=== PATIENT | male | born 1945 | race Caucasian/White ===

== ENCOUNTER → 2016-05-20 | Outpatient (CLI) | payer MEDICARE | DX: I10 Essential (primary) hypertension (principal) | CPT/HCPCS: 93306 ==

== ENCOUNTER → 2016-08-07 | Outpatient (CLI) | payer MEDICARE | LOC: US 13:00 | DX: R55 Syncope and collapse (principal) | CPT/HCPCS: 93880 ==

== ENCOUNTER 2020-10-12 21:25 | Emergency (ER) | payer MEDICARE ==
[2020-10-13 00:05] LABS: RED BLOOD COUNT 4.88 M/UL (4.20-5.50); WHITE BLOOD COUNT 14.8 K/UL (4.5-11.0)
[2020-10-13 00:21] LABS: BUN/CREATININE RATIO 33 (0-10)
== END 2020-10-13 00:50 | disposition home or self-care (01) ==
LOC: ER1 21:25
PROVIDERS: Physician Assistant Medical
DX: R07.9 Chest pain, unspecified (principal); R53.1 Weakness; I10 Essential (primary) hypertension; E11.9 Type 2 diabetes mellitus without complications; Z90.49 Acquired absence of other specified parts of digestive tract; Z88.8 Allergy status to other drugs, medicaments and biological substances; Z20.822 Contact with and (suspected) exposure to COVID-19
CPT/HCPCS: 71045; 80053; 82550; 82553; 83605; 83874; 84484; 85025; 87040; 93005; 99285; U0002

== ENCOUNTER 2021-10-24 07:00 | Observation (INO) | payer MEDICARE ==
[~2021-10-24] VITALS: Ht 188 cm; Wt 93.0 kg
[2021-10-24 07:44] LABS: HEMOGLOBIN 14.9 gm/dl (14.0-17.5); RED BLOOD COUNT 4.96 M/UL (4.20-5.50); WHITE BLOOD COUNT 7.6 K/UL (4.5-11.0)
[2021-10-24 08:07] LABS: BUN/CREATININE RATIO 25 (0-10)
[2021-10-24] MEDS ORDERED: KLONOPIN0.5 MG PO (13:15)
[2021-10-24] MEDS ORDERED: LOSARTAN-HCTZ1 EAC1 PO (13:16)
[2021-10-24] MEDS ORDERED: FINASTERIDE5 MG PO (13:17)
[2021-10-24] MEDS ORDERED: CLONIDINE HCL0.2 MG PO (13:17)
[2021-10-24] MEDS ORDERED: ZOLPIDEM TARTRA10 MG PO (13:18)
[2021-10-24] MEDS ORDERED: LISINOPRIL20 MG PO (13:18)
[2021-10-24] MEDS ORDERED: ACETAMINOPHEN-1 EAC1 PO (13:19)
[2021-10-24] MEDS ORDERED: LEVOTHYROXINE50 MCG PO (13:19)
[2021-10-24] MEDS ORDERED: XARELTO20 MG PO (13:20)
[2021-10-24] MEDS ORDERED: CARVEDILOL25 MG PO (13:21)
[2021-10-24] MEDS ORDERED: LEVEMIR100 UNIT/1 SQ (13:22)
[2021-10-24] MEDS ORDERED: CRESTOR10 MG PO (13:22)
[2021-10-24] MEDS ORDERED: AMLODIPINE BESY10 MG PO (13:23)
[2021-10-24] MEDS ORDERED: SERTRALINE HCL50 MG PO (13:23)
[2021-10-25 06:51] LABS: HEMOGLOBIN 16.6 gm/dl (14.0-17.5)
[2021-10-25 06:52] LABS: RED BLOOD COUNT 5.5 M/UL (4.20-5.50)
[2021-10-25 07:06] LABS: BUN/CREATININE RATIO 25 (0-10)
--- NOTE | 2021-10-25 07:36 | NUR ---
PATIENT REQUEST TO LEAVE AMA. HE STATES THAT HE HAS NOT SEEN THE DOCTOR SINCE HE HAS BEEN HERE AND HE WANTS TO LEAVE. WE ARE NOT DOING ANYTHING FOR HIM. PATIENT IS ALERT. DR MCDANIEL NOTIFIED. [employer] NOTIFIED.
== END 2021-10-25 08:35 | disposition left against medical advice (07) ==
LOC: ER1 07:00 → CDU 08:52 → MED SURG 4 13:58
PROVIDERS: Emergency Medicine; Physician Assistant; ADMIT Internal Medicine
DX: I16.0 Hypertensive urgency (principal); R07.89 Other chest pain; I48.20 Chronic atrial fibrillation, unspecified; E11.9 Type 2 diabetes mellitus without complications; I25.10 Atherosclerotic heart disease of native coronary artery without angina pectoris; E03.9 Hypothyroidism, unspecified; E78.5 Hyperlipidemia, unspecified; Z79.01 Long term (current) use of anticoagulants; Z95.5 Presence of coronary angioplasty implant and graft; Z86.73 Personal history of transient ischemic attack (TIA), and cerebral infarction without residual deficits
CPT/HCPCS: 0240U; 36415; 71045; 80048; 80053; 81001; 82550; 82553; 82962; 83735; 83880; 84484; 85025; 87040; 93005; 96374; 96375; 96376; 99285; G0378; J0360; J2405